=== PATIENT | male | born 1970 | race Caucasian/White ===

== ENCOUNTER 2021-07-20 13:44 | Emergency (ER) | payer SELFPAY ==
[2021-07-20] MEDS ORDERED: Sodium Chloride 0.9% 2.5 ML Syringe FLUSH PRN (15:39)
[2021-07-20] MEDS ORDERED: Sodium Chloride 0.9% 10 ML Syringe FLUSH PRN (15:39)
[2021-07-20] MEDS ORDERED: Sodium Chloride 0.9% 1,000 ML IV ONE (15:40)
--- NOTE | 2021-07-20 15:41 | EDM.PDOC ---
ED HPI GENERAL MEDICAL PROBLEM - General Chief Complaint: General Stated Complaint: COUGHING UP BLOOD AND FEVER Time Seen by Provider: 07/20/21 15:38 - History of Present Illness INITIAL COMMENTS - FREE TEXT/NARRATIVE: History of present illness: Patient has fever and symptoms for about 3 days. He is recently Covid positive. Patient now has hemoptysis as well. He aches all over hurts all over and has fever intermittently. [] Patient has recently been diagnosed with diabetes. He is not on any blood thinner Review of systems: As per history of present illness and below otherwise all systems reviewed and negative. Past medical history: As per history of present illness and as reviewed below otherwise noncontributory. Surgical history: As per history of present illness and as reviewed below otherwise noncontribut ory. Social history: No reported history of drug or alcohol abuse. Family history: As per history of present illness and as reviewed below otherwise noncontributory. Physical exam: Constitutional - well developed, well-nourished and in no acute distress HEENT - normocephalic, no evidence of trauma - external nose and mouth normal - no mass in neck and no JVD - mucosae moist EYES - full EOM, PERRL, no icterus - no evidence of inflammation, injection, or drainage Respiratory - no respiratory distress, equal bilateral expansion, lungs clear to auscultation and no abnormal lung sounds Cardiovascular - Regular Rhythm with S1 and S2 appreciated and no murmur, gallop or rub. GI - abdomen soft without distension or organomegaly - normal bowel sounds - no guard or rebound Musculoskeletal no gross deformity of long bones or joints - no tenderness, swelling or edema Neurologic - Alert and oriented times four - CN II-XII grossly intact - motor sensory and coordination symmetrically normal Psychiatric - appropriate mood and affect with normal thought content Hematologic - No petechiae or purpura - mucosa appropriate color and sclera not pale - normal nail bed color and refill Integument - no rash or evidence of trauma - normal turgor Diagnostics: [] Therapeutics: [] Impression: [] Plan: [] Definitive disposition and diagnosis as appropriate pending reevaluation and review of above. Treatments [employer]: Reports: Acetaminophen Generalized Pain Score (Numeric/FACES): 8 - Related Data Allergies Allergy/AdvReac Type Severity Reaction Status Date / Time No Known Allergies Allergy Verified 07/20/21 14:59 Home Meds: Home Meds Acetaminophen/oxyCODONE [Percocet 325-10 MG] 1 tab PO Q4H PRN #14 tab 07/20/21 [Rx] Past Medical History - Past Health History Medical/Surgical History: Denies Medical/Surgical History - Infectious Disease History Infectious Disease History: Reports: Chicken Pox, Shingles - Past Surgical History Other Musculoskeletal Surgeries/Procedures:: ACL, broken finger Social & Family History - Family History Family Medical History: No Pertinent Family History - Tobacco Use Tobacco Use Status *Q: Never Tobacco User - Recreational Drug Use Recreational Drug Use: No ED ROS GENERAL - Review of Systems Review Of Systems: Comprehensive ROS is negative, except as noted in HPI. ED EXAM, GENERAL - Physical Exam Exam: See Below Free Text/Narrative:: My physical exam is in the HPI #1 Interpretation EKG Interpretation Comments: EKG done 07/20/2021 at 4:40 PM shows a normal sinus rhythm with a heart rate of 91 a RI interval of 129 QT duration of 429 axis is [address] and T with minimal ST elevation consistent with early repole. Impression normal Course - Vital Signs Text/Narrative:: Patient has never been hypoxic here. CT does not demonstrate any pulmonary embolus or lesion that is bleeding. He coughed up a small amount of blood and not in the emergency department anymore. Discharged with pain medicine because he has severe back pain now relative to his Covid infiltrates. Last Recorded V/S: Last Vital Signs Temp 37.7 C 07/20/21 14:53 Pulse 104 H 07/20/21 14:53 Resp 18 07/20/21 14:53 BP 125/68 07/20/21 14:53 Pulse Ox 96 07/20/21 14:53 - Orders/Labs/Meds Orders: Active Orders 24 hr Category Date Time Status Sodium Chloride 0.9% [Saline Flush] Med 07/20/21 15:39 Active 10 ml FLUSH ASDIRECTED PRN Sodium Chloride 0.9% [Saline Flush] Med 07/20/21 15:39 Active 2.5 ml FLUSH ASDIRECTED PRN Saline Lock Insert [OM.PC] Stat Oth 07/20/21 15:39 Ordered Medication Orders Sodium Chloride (Sodium Chloride 0.9% 10 Ml Syringe) 10 ml FLUSH ASDIRECTED PRN PRN Reason: Keep Vein Open Last Admin: 07/20/21 17:05 Dose: 10 ml Documented by: FE Sodium Chloride (Sodium Chloride 0.9% 2.5 Ml Syringe) 2.5 ml FLUSH ASDIRECTED PRN PRN Reason: Keep Vein Open Last Admin: 07/20/21 17:05 Dose: 2.5 ml Documented by: [id number] Labs: Laboratory Tests 07/20/21 07/20/21 Range/Units 16:12 16:12 WBC 4.30 (4.0-11.0) K/uL RBC 6.27 H (4.50-5.90) M/uL Hgb 17.4 H (13.0-17.0) g/dL Hct 51.2 H (38.0-50.0) % MCV 81.7 (80.0-98.0) fL MCH 27.8 (27.0-32.0) pg MCHC 34.0 (31.0-37.0) g/dL RDW Std Deviation 39.9 (28.0-62.0) fl RDW Coeff of [place] 13 (11.0-15.0) % Plt Count 116 L (150-400) K/uL MPV 10.30 (7.40-12.00) fL Add Manual Diff YES Neutrophils % (Manual) 60 (48.0-80.0) % Band Neutrophils % 9 % Lymphocytes % (Manual) 22 (16.0-40.0) % Monocytes % (Manual) 9 (0.0-15.0) % Nucleated RBC % 0.0 /100WBC Absolute Seg Neuts 2.6 (1.4-5.7) Band Neutrophils # 0.4 Lymphocytes # (Manual) 0.9 (0.6-2.4) Monocytes # (Manual) 0.4 (0.0-0.8) Nucleated RBCs # 0 K/uL Sodium 133 L (136-148) mmol/L Potassium 4.6 (3.5-5.1) mmol/L Chloride 97 L (98-107) mmol/L Carbon Dioxide 29.3 (21.0-32.0) mmol/L BUN 16 (7.0-18.0) mg/dL Creatinine 1.1 (0.8-1.3) mg/dL Est Cr Clr Drug Dosing 91.33 mL/min Estimated GFR (MDRD) > 60.0 ml/min Glucose 202 H (74-106) mg/dL Calcium 8.7 (8.5-10.1) mg/dL Total Bilirubin 0.4 (0.2-1.0) mg/dL AST 31 (15-37) IU/L ALT 39 (14-63) IU/L Alkaline Phosphatase 66 (46-116) U/L Total Protein 8.0 (6.4-8.2) g/dL Albumin 3.5 (3.4-5.0) g/dL Globulin 4.5 H (2.6-4.0) g/dL Albumin/Globulin Ratio 0.8 L (0.9-1.6) Meds: Medications Generic Name Dose Route Start Last Admin Trade Name Freq PRN Reason Stop Dose Admin Sodium Chloride 10 ml 07/20/21 15:39 07/20/21 17:05 Sodium Chloride 0.9% 10 Ml Syringe FLUSH 10 ml ASDIRECTED PRN Administration Keep Vein Open Sodium Chloride 2.5 ml 07/20/21 15:39 07/20/21 17:05 Sodium Chloride 0.9% 2.5 Ml Syringe FLUSH 2.5 ml ASDIRECTED PRN Administration Keep Vein Open Discontinued Medications Generic Name Dose Route Start Last Admin Trade Name Freq PRN Reason Stop Dose Admin Sodium Chloride 1,000 mls @ 1,000 mls/hr 07/20/21 15:40 07/20/21 17:04 Normal Saline IV 07/20/21 16:39 1,000 mls/hr .Bolus ONE Administration Iopamidol 75 ml 07/20/21 16:55 07/20/21 16:56 Iopamidol 755 Mg/Ml 500 Ml Multipack Bottle IVPUSH 07/20/21 16:56 75 ml ONETIME ONE Administration Departure - Departure Time of Disposition: 18:13 Disposition: Home, Self-Care 01 Condition: Good Clinical Impression: Back pain, Pneumonia due to COVID-19 virus, Hemoptysis - Discharge Information Prescriptions: Acetaminophen/oxyCODONE [Percocet 325-10 MG] 1 tab PO Q4H PRN #14 tab PRN Reason: Pain (Severe 7-10) Instructions: COVID-19 Vaccine Information, COVID-19: Quarantine vs. Isolation - [facility] (10/11/2020), COVID-19: What to Do If You Are Sick- [facility] (01/09/2021), 10 Things You Can Do to Manage Your COVID-19 Symptoms at Home - [facility] (05/10/2021) Referrals: PCP,None [Primary Care Provider] - Forms: ED Department Discharge Additional Instructions: [facility] - [facility] [address] [place] [address] [facility] [address] [place] [id number] The following information is given to patients seen in the emergency department who are being discharged to home. This information is to outline your options for follow-up care. We provide all patients seen in our emergency department with a follow-up referral. The need for follow-up, as well as the timing and circumstances, are variable depending upon the specifics of your emergency department visit. If you don't have a primary care physician on staff, we will provide you with a referral. We always advise you to contact your personal physician following an emergency department visit to inform them of the circumstance of the visit and for follow-up with them and/or the need for any referrals to a consulting specialist. The emergency department will also refer you to a specialist when appropriate. This referral assures that you have the opportunity for follow-up care with a specialist. All of these measure are taken in an effort to provide you with optimal care, which includes your follow-up. Under all circumstances we always encourage you to contact your private physician who remains a resource for coordinating your care. When calling for follow-up care, please make the office aware that this follow-up is from your recent emergency room visit. If for any reason you are refused follow-up, please contact the [facility] Emergency Department at and asked to speak to the emergency department charge nurse. Sepsis Event Note (ED) - Evaluation Sepsis Screening Result: No Definite Risk - Focused Exam Vital Signs: Vital Signs Temp Pulse Resp BP Pulse Ox 07/20/21 14:53 37.7 C 104 H 18 125/68 96 - My Orders Last 24 Hours: My Active Orders 07/20/21 15:39 Sodium Chloride 0.9% [Saline Flush] 10 ml FLUSH ASDIRECTED PRN Sodium Chloride 0.9% [Saline Flush] 2.5 ml FLUSH ASDIRECTED PRN Saline Lock Insert [OM.PC] Stat - Assessment/Plan Last 24 Hours: My Active Orders 07/20/21 15:39 Sodium Chloride 0.9% [Saline Flush] 10 ml FLUSH ASDIRECTED PRN Sodium Chloride 0.9% [Saline Flush] 2.5 ml FLUSH ASDIRECTED PRN Saline Lock Insert [OM.PC] Stat
--- NOTE | 2021-07-20 16:30 | CR ---
Indication: Cough and hemoptysis. Technique: Chest 2 views. Comparison: None. Findings: Cardiovascular and mediastinum: Heart size and vasculature are normal in caliber and appearance. Lungs and pleural spaces: Small patchy infiltrates are present in the lower left lung. No effusion and no pneumothorax. Bones and soft tissues: No significant findings. Impression: Patchy areas of pneumonitis suspected in the left lung. COVID-19 viral infection is not definite but possible. Dictated by Brant Delong MD @ 07/20/2021 4:29:23 PM (Electronically Signed)
[2021-07-20 16:42] LABS: BLOOD UREA NITROGEN,BUN 16 mg/dL (7.0-18.0); CARBON DIOXIDE,CO2 29.3 mmol/L (21.0-32.0); CHLORIDE,CL 97 mmol/L (98-107); GLUCOSE RANDOM 202 mg/dL (74-106); POTASSIUM,K 4.6 mmol/L (3.5-5.1); SODIUM,NA 133 mmol/L (136-148)
[2021-07-20] MEDS ORDERED: Iopamidol 755 MG/ML 500 ML Multipack Bottle IVPUSH ONE (16:55)
--- NOTE | 2021-07-20 17:12 | CT ---
INDICATION: Hemoptysis. COVID-19 positive. TECHNIQUE: CT chest PE was acquired with 75 cc Isovue 370 IV contrast. COMPARISON: None. FINDINGS: Heart and vasculature: Contrast opacification of the pulmonary arterial tree is adequate. No sign of pulmonary embolism. Heart size is normal. Thoracic aorta and pulmonary artery are normal in caliber. Lungs and pleural: There are scattered bilateral patchy ground-glass infiltrates. No pleural effusions, pleural thickening, or pneumothorax. Lymph nodes/mediastinum: There are few mildly enlarged mediastinal lymph nodes. Chest wall: No masses. Upper abdomen: No acute or significant findings. Bones: Unremarkable for age. IMPRESSION: 1. No pulmonary embolism. 2. COVID pneumonitis of moderate severity. Please note that all CT scans at this facility use dose modulation, iterative reconstruction, and/or weight-based dosing when appropriate to reduce radiation dose to as low as reasonably achievable. Dictated by Brant Delong MD @ 07/20/2021 5:11:04 PM (Electronically Signed)
== END 2021-07-20 18:48 | disposition home or self-care (01) ==
LOC: MW.ED 13:44
DX: U07.1 COVID-19 (principal); J12.82 Pneumonia due to coronavirus disease 2019; R04.2 Hemoptysis; M54.9 Dorsalgia, unspecified
CPT/HCPCS: 36415; 71045; 71275; 80053; 85025; 93005; 99284; J7030; Q9967

== ENCOUNTER 2021-07-24 17:53 | Emergency (ER) | payer SELFPAY ==
--- NOTE | 2021-07-24 21:03 | PCM.EKG ---
#1 Interpretation EKG Date: 07/24/21 Time: 18:41 Rhythm: NSR Rate (Beats/Min): 84 [place]: Normal P-Wave: Present QRS: Normal ST-T: Normal QT: Normal Comparison: No Change (07/20/21) EKG Interpretation Comments: Sinus rhythm
--- NOTE | 2021-07-24 21:11 | EDM.PDOC ---
ED HPI GENERAL MEDICAL PROBLEM - General Chief Complaint: Respiratory Problem Stated Complaint: COVID POSITIVE, LOW OXYGEN Time Seen by Provider: 07/24/21 18:51 Source of Information: Reports: Patient History Limitations: Reports: No Limitations - History of Present Illness INITIAL COMMENTS - FREE TEXT/NARRATIVE: HISTORY AND PHYSICAL: History of present illness: Patient is a 50-year-old male, with a history of known COVID-19 diagnosis since 8 days ago, who presents emergency room today as he was concerned his oxygen was low. Patient states he is also here in the emergency room as he was wondering if there is any medications that he can take to help improve his COVID-19 infection. Patient states since his diagnosis, he has had generalized body aches, cough, and intermittent fevers. Patient denies any worsening shortness of breath or chest pain. Patient states that he was diagnosed at a drive- through COVID-19 testing. Patient states that since then, he has been in isolation at the hotel as he lives in [place] and is only here for work. Patient states that he does have a pulse oximeter and was concerned because yesterday his oxygen was 96% consistently and today has been 94%. Patient denies any other symptoms or concerns. Patient states that he does have type 2 diabetes but has not been in the process of starting medications for this yet as his primary care provider is trying diet control. Patient denies chest pain, shortness of breath. Denies headache, neck stiff ness, change in vision, syncope, or near syncope. Denies nausea, vomiting, abdominal pain, diarrhea, constipation, or dysuria. Has not noted any blood in urine or stool. Patient has been eating and drinking appropriately. Review of systems: As per history of present illness and below otherwise all systems reviewed and negative. Past medical history: As per history of present illness and as reviewed below otherwise noncontributory. Surgical history: As per history of present illness and as reviewed below otherwise noncontributory. Social history: See social history for further information Family history: As per history of present illness and as reviewed below otherwise noncontributory. Physical exam: General: Patient is alert, oriented, and in no acute distress. Patient sitting comfortably on exam table. Vitals stable and reviewed by me. HEENT: Atraumatic, normocephalic, pupils equal and reactive bilaterally, negative for conjunctival pallor or scleral icterus, mucous membranes moist, TMs normal bilaterally, throat clear, neck supple, nontender, trachea midline. No drooling or trismus noted. No meningeal signs. No hot potato voice noted. Lungs: Clear to auscultation, breath sounds equal bilaterally, chest nontender. Patient speaking clearly without breathlessness, no wheezing or stridor, no accessory muscle use or respiratory distress. Heart: S1S2, regular rate and rhythm without overt murmur Abdomen: Soft, nondistended, nontender. Negative for masses or hepatosplenomegaly. Negative for costovertebral tenderness. Pelvis: Stable nontender. Genitourinary: Deferred. Rectal: Deferred. Skin: Intact, warm, dry. No lesions or rashes noted. Extremities: Atraumatic, negative for cords or calf pain. Neurovascular unremarkable. Neuro: Awake, alert, oriented. Cranial nerves II through XII unremarkable. Cerebellum unremarkable. Motor and sensory unremarkable throughout. Exam nonfocal. Notes: Patient is a 50-year-old male who presents emergency room today with concern of known Covid diagnosis for 8 days who presents emergency room today with desire for possible medication management and states that he was concerned as his oxygen is 94% at home. Upon arrival to the ED, patient is vitally stable and well-appearing on exam. Discussed with patient possible monoclonal antibody infusion as he does has risk factors including his age, type 2 diabetes diagnosis, and does have a recent angiography from 4 days ago that does show moderate COVID-19 infection. Patient would like monoclonal antibody infusion. Patient was given information packet on this and Rx has been filled out in order for him to receive his infusion. Patient has to get a repeat COVID-19 testing on file for our facility to give this infusion. This has been done today. COVID-19 is positive. EKG done today shows no acute STEMI and normal sinus rhythm. Discussed importance for follow-up with a primary care provider following COVID-19 quarantine restrictions. Discussed closely monitoring oxygen at home with pulse oximeter. Return precautions thoroughly discussed with patient. Voices understanding and is agreeable to plan of care. Denies any further questions or concerns at this time. Diagnostics: EKG, COVID-19 Therapeutics: None Prescription: monoclonal antibody prescription Impression: COVID-19 viral infection Plan: 1. Your COVID-19 screening is positive. That means you do have the coronavirus and are considered contagious. Your vital signs and oxygen saturation are well enough that you were able to monitor your symptoms at home. Continue to monitor for trouble breathing, new confusion or inability to arouse, bluish lips or face or any of the other symptoms we discussed -if this occurs please return to the emergency room.Continue to monitor your health at home for worsening symptoms so that you can be taken care of and treated quickly if needed. 2. Please self quarantine until 10 days have passed since your symptoms began AND you are fever free (<100.4 degrees fahrenheit) for 24 hours without the use of fever-reducing medications AND symptoms are improving. You should restrict activities outside of your home, except for getting medical care. Do not go to work, school, or public areas. Avoid using public transportation, ride-sharing, or taxis. Inform any persons that you have been in contact with since you started becoming symptomatic that you have tested positive; they should be made aware and take the appropriate steps as needed. 3. You may alternate Tylenol and ibuprofen as needed for pain and fever management. 4. The [facility] health department will be calling you and following up with you. The [place] COVID 19 Hot[place] phone number , They are open Thursday - Thursday 7am - 7pm. Follow up with your primary care provider for re-evaluation and re-testing after quarantine and discuss when you should be seen. 5. For more specific guidelines regarding isolation/quarantine please visit this website. https://www.health.[place].gov/sites/www/files/documents/Files/ARGELIA/coronavirus/Factsh eet_for_People_With_COVID-19.pdf Definitive disposition and diagnosis as appropriate pending reevaluation and review of above. chest Pain Score (Numeric/FACES): 4 - Related Data Allergies Allergy/AdvReac Type Severity Reaction Status Date / Time No Known Allergies Allergy Verified 07/24/21 18:59 Home Meds: Home Meds Acetaminophen/oxyCODONE [Percocet 325-10 MG] 1 tab PO Q4H PRN #14 tab 07/20/21 [Rx] Past Medical History - Past Health History Medical/Surgical History: Denies Medical/Surgical History HEENT History: Reports: None Cardiovascular History: Reports: None Respiratory History: Reports: None Gastrointestinal History: Reports: None Genitourinary History: Reports: None Musculoskeletal History: Reports: None Neurological History: Reports: None Psychiatric History: Reports: None Endocrine/Metabolic History: Reports: None Hematologic History: Reports: None Immunologic History: Reports: None Oncologic (Cancer) History: Reports: None Dermatologic History: Reports: None - Infectious Disease History Infectious Disease History: Reports: Chicken Pox, Shingles - Past Surgical History Head Surgeries/Procedures: Reports: None Other Musculoskeletal Surgeries/Procedures:: ACL, broken finger Social & Family History - Family History Family Medical History: No Pertinent Family History - Tobacco Use Tobacco Use Status *Q: Never Tobacco User Second Hand Smoke Exposure: No - Caffeine Use Caffeine Use: Reports: None - Recreational Drug Use Recreational Drug Use: No ED ROS GENERAL - Review of Systems Review Of Systems: Comprehensive ROS is negative, except as noted in HPI. ED EXAM, GENERAL - Physical Exam Exam: See Below (See dictation) Course - Vital Signs Last Recorded V/S: Last Vital Signs Temp 98.8 F 07/24/21 18:54 Pulse 83 07/24/21 21:24 Resp 19 07/24/21 21:24 BP 137/82 07/24/21 21:24 Pulse Ox 94 L 07/24/21 21:24 - Orders/Labs/Meds Labs: Laboratory Tests 07/24/21 Range/Units 20:05 SARS-CoV-2 RNA (STANLEY) POSITIVE H (NEGATIVE) Departure - Departure Time of Disposition: 21:11 Disposition: Home, Self-Care 01 Clinical Impression: COVID-19 - Discharge Information Referrals: PCP,None [Primary Care Provider] - Forms: ED Department Discharge Additional Instructions: The following information is given to patients seen in the emergency department who are being discharged to home. This information is to outline your options for follow-up care. We provide all patients seen in our emergency department with a follow-up referral. The need for follow-up, as well as the timing and circumstances, are variable depending upon the specifics of your emergency department visit. If you don't have a primary care physician on staff, we will provide you with a referral. We always advise you to contact your personal physician following an emergency department visit to inform them of the circumstance of the visit and for follow-up with them and/or the need for any referrals to a consulting specialist. The emergency department will also refer you to a specialist when appropriate. This referral assures that you have the opportunity for follow-up care with a specialist. All of these measure are taken in an effort to provide you with optimal care, which includes your follow-up. Under all circumstances we always encourage you to contact your private physician who remains a resource for coordinating your care. When calling for follow-up care, please make the office aware that this follow-up is from your recent emergency room visit. If for any reason you are refused follow-up, please contact the [facility] Emergency Department at and asked to speak to the emergency department charge nurse. [facility] [address] [place] [address] [facility] [address] [place] [id number] 1. Your COVID-19 screening is positive. That means you do have the coronavirus and are considered contagious. Your vital signs and oxygen saturation are well enough that you were able to monitor your symptoms at home. Continue to monitor for trouble breathing, new confusion or inability to arouse, bluish lips or face or any of the other symptoms we discussed -if this occurs please return to the emergency room.Continue to monitor your health at home for worsening symptoms so that you can be taken care of and treated quickly if needed. 2. Please self quarantine until 10 days have passed since your symptoms began AND you are fever free (<100.4 degrees fahrenheit) for 24 hours without the use of fever-reducing medications AND symptoms are improving. You should restrict activities outside of your home, except for getting medical care. Do not go to work, school, or public areas. Avoid using public transportation, ride-sharing, or taxis. Inform any persons that you have been in contact with since you started becoming symptomatic that you have tested positive; they should be made aware and take the appropriate steps as needed. 3. You may alternate Tylenol and ibuprofen as needed for pain and fever management. 4. The [facility] department will be calling you and following up with you. The [place] COVID 19 Hot[place] phone number , They are open Thursday - Thursday 7am - 7pm. Follow up with your primary care provider for re-evaluation and re-testing after quarantine and discuss when you should be seen. 5. For more specific guidelines regarding isolation/quarantine please visit this website. https://www.health.[place].gov/sites/www/files/documents/Files/ARGELIA/coronavirus/Factsh eet_for_People_With_COVID-19.pdf Sepsis Event Note (ED) - Evaluation Sepsis Screening Result: No Definite Risk
== END 2021-07-24 21:25 | disposition home or self-care (01) ==
LOC: MW.ED 17:53
DX: U07.1 COVID-19 (principal)
CPT/HCPCS: 93005; 99284-25; U0002

== ENCOUNTER 2025-01-04 00:39 | Emergency (ER) | payer SELFPAY ==
[2025-01-04] MEDS: Tetracaine HCl/PF 0.5% 4 ML Bottle EYEBOTH ONE (00:56)
[2025-01-04] MEDS: Tetracaine HCl/PF 0.5% 4 ML Bottle ONE (00:57)
[2025-01-04] MEDS: Dexamethasone/Tobramycin 0.1-0.3% Ophth Susp 5 ML Bottle EYEBOTH ONE (01:16)
== END 2025-01-04 01:29 | disposition home or self-care (01) ==
LOC: MW.ED 00:39
DX: H10.9 Unspecified conjunctivitis (principal)
CPT/HCPCS: 99282; 99283; J3490